=== PATIENT | female | born 1955 | race Caucasian/White ===

== ENCOUNTER → 2017-10-29 | Outpatient (CLI) | payer BC ==
[~2017-10-29] MED LIST: ASPI-1471 PO; CHOL100052 PO; CRAN500C11 PO; HYDR-4309 PO; IBUP200C74 PO; MULT1CAP59 PO; VALA100062 PO
--- NOTE | 2017-10-29 14:23 | RADIOLOGY IMAGING REPORT ---
FACILITY: [facility] - [place] PATIENT NAME: Thuy Winters : 1955 MR: [id number] V: [id number] EXAM DATE: ORDERING PHYSICIAN: CRYSTAL CHAWLA TECHNOLOGIST: Location: [facility] Patient: Thuy Winters : 1955 Visit/Account:[id number] Date of Sevice: 10/29/2017 THYROID HISTORY: Thyroid megaly COMPARISON: None. FINDINGS: SIZE: Right lobe: 4.6 x 2.2 x 1.8 cm Left lobe: 5.3 x 2.1 x 2 cm Isthmus: 4 mm PARENCHYMA: The parenchyma appears diffusely heterogeneous. Discrete nodules not identified NODULES: Right lobe: * None discrete. Left lobe: * None discrete. Isthmus: * None discrete. VASCULARITY: Increased bilaterally ADDITIONAL FINDINGS: None. IMPRESSION: Both lobes of thyroid gland appear diffusely heterogeneous and hypervascular although discrete nodule s not seen REFERENCE: 2015 [employer] Management Guidelines for Adult Patients with Thyroid Nodules and D ifferentiated Thyroid Cancer: The [place] [employer] Guidelines Task Force on Thyroid Nodul es and Differentiated Thyroid Cancer. SONOGRAPHIC PATTERNS: * Benign: Purely cystic nodules (no solid component); estimated risk of malignancy <1 percent; no bi opsy recommended. * Very Low Suspicion: Spongiform or partially cystic nodules without any of the sonographic features described in low, intermediate, or high suspicion patterns; estimated risk of malignancy <3 percent; consider FNA at > 2 cm (Observation without FNA is also a reasonable option). * Low Suspicion: Isoechoic or hyperechoic solid nodule, or partially cystic nodule with eccentric so lid areas, without microcalcification, irregular margin or ETE (extra-thyroidal extension), or taller than wide shape; estimated risk of malignancy 5-10 percent; recommend FNA at >1.5 cm. * Intermediate Suspicion: Hypoechoic solid nodule with smooth margins without microcalcifications, E TE (extra-thyroidal extension), or taller than wide shape; estimated risk of malignancy 10-20 percent ; recommend FNA at > 1 cm. * High Suspicion: Solid hypoechoic nodule or solid hypoechoic component of a partially cystic nodule with one or more of the following features: irregular margins (infiltrative, microlobulated), microc alcifications, taller than wide shape, rim calcifications with small extrusive soft tissue component, evidence of ETE (extra-thyroidal extension); estimated risk of malignancy >70-90 percent; recommend FNA at > 1 cm. NOTES: * Although a sonographically suspicious subcentimeter thyroid nodule without evidence of extrathyroi elyse extension or sonographically suspicious lymph nodes may be observed with close sonographic follow -up rather than pursuing immediate FNA, patient age and preference may modify decision-making. A > 50% interval increase in nodule volume and/or development of new suspicious sonographic features are felt to be a valid reasons for potential re-aspiration of a nodule previously shown to have benig n FNA cytology. Report Dictated By: Indiana Cloud MD at 10/29/2017 2:18 PM Report E-Signed By: Indiana Cloud MD at 10/29/2017 2:19 PM WSN:[email or web address]
--- NOTE | 2017-11-02 14:42 | RADIOLOGY IMAGING REPORT ---
FACILITY: [facility] PATIENT NAME: DEVORA RUEDA : [id number] MR: [id number] V: [id number] EXAM DATE: ORDERING PHYSICIAN: CRYSTAL CHAWLA TECHNOLOGIST: Pauline Mims PROCEDURE:BILATERAL DIGITAL SCREENING MAMMOGRAM WITH CAD ASSISTED INTERPRETATION & 3D TOMOSYNTHESIS COMPARISON:Prior mammograms 04/30/15, 09/10/13. INDICATIONS:SCREENING FINDINGS: Small to moderate amount of fibroglandular tissue is seen throughout the breasts. The parenchymal pattern has remained stable allowing for difference in mammographic technique & patient positioning. There is no evidence of malignant appearing mass, malignant appearing calcifications or other secondary sign of malignancy in either breast. DIAGNOSTIC CATEGORY 1--NEGATIVE. RECOMMENDATIONS: ROUTINE MAMMOGRAM AND CLINICAL EVALUATION. IMPRESSION: BIRADS 1: Negative. No significant abnormality is seen. Dictated by: Indiana Cloud M.D. on 11/02/2017 at 13:36 Transcribed by: TERRY on 11/02/2017 at 13:50 Approved by: Indiana Cloud M.D. on 11/02/2017 at 14:41 [facility]
== END ==
LOC: MAMO 01:23
PROVIDERS: ATTEND Family Medicine
DX: Z12.31 Encounter for screening mammogram for malignant neoplasm of breast (principal); E04.9 Nontoxic goiter, unspecified
CPT/HCPCS: 76536; 77063; 77067

== ENCOUNTER → 2018-03-06 | Outpatient (CLI) | payer BC ==
[~2018-03-06] MED LIST changes: -HYDR-4309 PO; +HYDR-653 PO
--- NOTE | 2018-03-06 09:14 | RADIOLOGY IMAGING REPORT ---
FACILITY: [facility] [place] PATIENT NAME: Thuy Winters : 1955 MR: [id number] V: [id number] EXAM DATE: ORDERING PHYSICIAN: CRYSTAL CHAWLA TECHNOLOGIST: [place] [facility] [place]uy Win[place] : 1955 Visit/Account:[id number] Date of Sevice: 03/06/2018 KIDNEYS EXAMINATION: Renal ultrasound. History: Renal insufficiency COMPARISON STUDIES: FINDINGS: Kidneys: Right kidney- 10.6 x 5.7 x 5.6 cm Left kidney- 9.8 x 4 x 6 cm Uniform and symmetric blood flow in each kidney by Doppler ultrasound. Hydronephrosis: none Resistive index on the right 0.67 on the left 0.66. The renal cortex on the right measures 7 mm in thickness and on the left 8.4 mm Bladder: Urinary bladder prevoid volume 233 mm. Post void residual 10 mL. Two right ureteral jets a nd one left ureteral jet was present. Abdominal aorta and IVC: Aorta and IVC are patent by Doppler ultrasound. IMPRESSION: There is cortical thinning of both kidneys. right ureteral jets were identified and one left ureteral jet Report Dictated By: Indiana Cloud MD at 03/06/2018 8:57 AM Report E-Signed By: Indiana Cloud MD at 03/06/2018 9:10 AM WSN:[email or web address]
== END ==
LOC: US 00:34
PROVIDERS: ATTEND Family Medicine
DX: N18.9 Chronic kidney disease, unspecified (principal)
CPT/HCPCS: 76705